=== PATIENT | male | born 1990 | race Caucasian/White ===

== ENCOUNTER 2023-04-23 02:17 | Inpatient (IN) | payer SELFPAY ==
[~2023-04-23] VITALS: Ht 165.1 cm; Wt 74.8 kg
[2023-04-23 03:57] LABS: BASOPHILS % 0.5 % (0.0-2.0); EOSINOPHILS % 0.5 % (0.0-5.0); HEMATOCRIT. 44.1 % (42.0-52.0); HEMOGLOBIN. 13.8 g/dL (14.0-18.0); LYMPHOCYTES % 10.5 % (20.0-50.0); MEAN CORPUSCULAR HEMOGLOBIN 27.3 pg (28.0-32.0); MEAN CORPUSCULAR HGB CONC 31.3 g/dL (31.0-37.0); MEAN CORPUSCULAR VOLUME 87.5 fL (80.0-94.0); MONOCYTES % 8.8 % (2.0-8.0); NEUTROPHILS % 79.7 % (40.0-76.0); PLATELET 209 x1000/uL (130-400); RED BLOOD CELL COUNT 5.04 mill/uL (4.7-6.1); RED CELL DISTRIBUTION WIDTH 14.8 % (11.6-14.6); WHITE BLOOD COUNT 8.4 x1000/uL (4.5-11.0)
[2023-04-23 04:18] LABS: ACETAMINOPHEN < 2 ug/mL (10-30); ALANINE AMINOTRANSFERASE 323 IU/L (10-49); ALBUMIN 4.5 g/dL (3.2-4.8); ASPARTATE AMINOTRANSFERASE 1160 IU/L (<34); BILIRUBIN TOTAL 0.3 mg/dL (0.1-1.0); CALCIUM 8.9 mg/dL (8.7-10.4); CARBON DIOXIDE 26 mEq/L (21-32); CHLORIDE 103 mEq/L (98-107); CREATININE 0.7 mg/dL (0.6-1.3); ETHANOL BLOOD 72 mg/dL (<10); GLUCOSE 113 mg/dL (70-105); POTASSIUM 3.8 mEq/L (3.5-5.1); PROTEIN TOTAL 7.8 g/dL (6.0-8.3); SODIUM 138 mEq/L (136-145); UREA NITROGEN BLOOD 9 mg/dL (9-23)
[2023-04-23 05:18] LABS: HEPATITIS A AB IGM NEGATIVE (Negative); HEPATITIS B CORE AB IGM NEGATIVE (Negative); HEPATITIS B SURFACE ANTIGEN NEGATIVE (Negative); HEPATITIS C AB NON REACTIVE (Neg) (Negative)
[2023-04-23] MEDS ORDERED: NALO4SPR BOTHNSTRLS (05:31)
[2023-04-23 08:00] VITALS: BP 145/89; PULSE 67; RESP 16; TEMP 97
[2023-04-23] MEDS: SODIUM CHLORIDE 0.9% 1,000 ML IV SCH (10:00)
[2023-04-23 11:54] VITALS: BP 145/89; PULSE 67; RESP 16; TEMP 97
[2023-04-23 12:00] VITALS: BP 141/94; PULSE 72; RESP 16; TEMP 96.2
[2023-04-23] MEDS ORDERED: ACETAMINOPHEN 325MG TABLET PO PRN (12:15)
[2023-04-23] MEDS ORDERED: ONDANSETRON HCL 4MG/2ML INJ IV PRN (14:15)
[2023-04-23 16:00] VITALS: BP 142/105; PULSE 83; RESP 18; TEMP 96.5
[2023-04-23] MEDS ORDERED: THIAMINE HCL 100MG TABLET PO NR (17:45)
[2023-04-23] MEDS: METOCLOPRAMIDE HCL 10MG/2ML VIAL IV SCH ×2 (18:05→23:15)
[2023-04-23 20:00] VITALS: BP 126/87; PULSE 73; RESP 19; TEMP 97.4
[2023-04-23] MEDS: SUCRALFATE 1G TABLET PO SCH (20:11)
[2023-04-23] MEDS: CHLORDIAZEPOXIDE 25MG CAPSULE PO SCH (21:15)
[2023-04-23] MEDS: GABAPENTIN 100MG CAPSULE PO SCH (21:16)
[2023-04-24] VITALS (7 sets, daily range): BP systolic 106–181; BP diastolic 60–99; PULSE 73–120; RESP 18–20; TEMP 97.7–99.3
[2023-04-24] MEDS: CHLORDIAZEPOXIDE 25MG CAPSULE PO SCH ×3 (05:19→21:11)
[2023-04-24] MEDS: METOCLOPRAMIDE HCL 10MG/2ML VIAL IV SCH ×3 (05:19→16:38)
[2023-04-24] MEDS: SODIUM CHLORIDE 0.9% 1,000 ML IV SCH ×2 (05:20→16:38)
[2023-04-24] MEDS: GABAPENTIN 100MG CAPSULE PO SCH ×3 (05:20→21:11)
[2023-04-24] MEDS: SUCRALFATE 1G TABLET PO SCH ×4 (06:26→21:11)
[2023-04-24] MEDS: MULTIVITAMINS,THER W-MINERALS TABLET PO SCH (08:22)
[2023-04-24] MEDS: AMLODIPINE 5MG TABLET PO SCH (08:22)
[2023-04-25] VITALS: BP 134/72; PULSE 94; RESP 20; TEMP 100.3
[2023-04-25] MEDS: SODIUM CHLORIDE 0.9% 1,000 ML IV SCH ×2 (01:25→16:15)
[2023-04-25] MEDS: METOCLOPRAMIDE HCL 10MG/2ML VIAL IV SCH ×4 (01:30→18:03)
[2023-04-25 04:00] VITALS: BP 167/94; PULSE 105; RESP 20; TEMP 98.8
[2023-04-25] MEDS: LACTULOSE 20G/30ML UDC PO SCH ×3 (05:58→21:05)
[2023-04-25] MEDS: CHLORDIAZEPOXIDE 25MG CAPSULE PO SCH ×2 (05:59→14:09)
[2023-04-25] MEDS: GABAPENTIN 100MG CAPSULE PO SCH ×3 (05:59→21:04)
[2023-04-25] MEDS: SUCRALFATE 1G TABLET PO SCH ×4 (06:01→21:05)
[2023-04-25 06:18] LABS: AMMONIA 38 uMol/L (<32)
[2023-04-25 06:19] LABS: ALANINE AMINOTRANSFERASE 119 IU/L (10-49); ASPARTATE AMINOTRANSFERASE 87 IU/L (<34); BILIRUBIN DIRECT 0.4 mg/dL (<=3.0); CALCIUM 9.1 mg/dL (8.7-10.4); CARBON DIOXIDE 29 mEq/L (21-32); CHLORIDE 100 mEq/L (98-107); CREATININE 0.6 mg/dL (0.6-1.3); GLUCOSE 89 mg/dL (70-105); POTASSIUM 3.4 mEq/L (3.5-5.1); PROTEIN TOTAL 6.6 g/dL (6.0-8.3); SODIUM 136 mEq/L (136-145); UREA NITROGEN BLOOD 6 mg/dL (9-23)
[2023-04-25 06:27] LABS: BASOPHILS % 0.3 % (0.0-2.0); HEMATOCRIT. 44.2 % (42.0-52.0); HEMOGLOBIN. 14.7 g/dL (14.0-18.0); LYMPHOCYTES % 18.9 % (20.0-50.0); MEAN CORPUSCULAR HEMOGLOBIN 28.1 pg (28.0-32.0); MEAN CORPUSCULAR HGB CONC 33.2 g/dL (31.0-37.0); MEAN CORPUSCULAR VOLUME 84.7 fL (80.0-94.0); MEAN PLATELET VOLUME 8.5 fl (7.4-10.4); MONOCYTES % 11.1 % (2.0-8.0); NEUTROPHILS % 68.7 % (40.0-76.0); PLATELET 198 x1000/uL (130-400); RED BLOOD CELL COUNT 5.22 mill/uL (4.7-6.1); RED CELL DISTRIBUTION WIDTH 14.3 % (11.6-14.6); WHITE BLOOD COUNT 6.8 x1000/uL (4.5-11.0)
[2023-04-25 06:34] LABS: PROTHROMBIN TIME 10.9 sec (9.6-11.0)
[2023-04-25 08:00] VITALS: BP 110/76; PULSE 79; RESP 20; TEMP 98
[2023-04-25] MEDS: MULTIVITAMINS,THER W-MINERALS TABLET PO SCH (10:03)
[2023-04-25] MEDS: AMLODIPINE 5MG TABLET PO SCH (10:03)
[2023-04-25] MEDS ORDERED: POTASSIUM CHLORIDE 20MEQ/PACKET PO NR (11:45)
[2023-04-25] MEDS ORDERED: LACT10SO7 PO (11:59)
[2023-04-25] MEDS ORDERED: SUCR1TAB30 PO (11:59)
[2023-04-25] MEDS ORDERED: GABA-529 PO (11:59)
[2023-04-25] MEDS ORDERED: THIA100T72 MT (11:59)
[2023-04-25] MEDS ORDERED: L25 PO (11:59)
[2023-04-25 16:00] VITALS: BP 147/97; PULSE 79; RESP 20; TEMP 99
[2023-04-25 20:00] VITALS: BP 123/83; PULSE 69; RESP 17; TEMP 97.8
[2023-04-26] VITALS: BP 121/83; PULSE 83; RESP 17; TEMP 97.5
[2023-04-26] MEDS: METOCLOPRAMIDE HCL 10MG/2ML VIAL IV SCH ×3 (00:10→11:18)
[2023-04-26] MEDS: SODIUM CHLORIDE 0.9% 1,000 ML IV SCH ×3 (03:44→05:54)
[2023-04-26 04:00] VITALS: BP 124/78; RESP 17; TEMP 97.6
[2023-04-26] MEDS: LACTULOSE 20G/30ML UDC PO SCH ×2 (05:54→13:29)
[2023-04-26] MEDS: SUCRALFATE 1G TABLET PO SCH ×2 (05:54→11:18)
[2023-04-26] MEDS: GABAPENTIN 100MG CAPSULE PO SCH ×2 (05:54→13:29)
[2023-04-26 07:25] LABS: BASOPHILS % 0.4 % (0.0-2.0); EOSINOPHILS % 2.1 % (0.0-5.0); HEMATOCRIT. 41.4 % (42.0-52.0); HEMOGLOBIN. 13.9 g/dL (14.0-18.0); LYMPHOCYTES % 17.9 % (20.0-50.0); MEAN CORPUSCULAR HEMOGLOBIN 28.5 pg (28.0-32.0); MEAN CORPUSCULAR HGB CONC 33.5 g/dL (31.0-37.0); MEAN CORPUSCULAR VOLUME 84.9 fL (80.0-94.0); MEAN PLATELET VOLUME 8.4 fl (7.4-10.4); MONOCYTES % 12.7 % (2.0-8.0); NEUTROPHILS % 66.9 % (40.0-76.0); PLATELET 198 x1000/uL (130-400); RED BLOOD CELL COUNT 4.88 mill/uL (4.7-6.1); WHITE BLOOD COUNT 5.9 x1000/uL (4.5-11.0)
[2023-04-26 08:25] VITALS: BP 116/77; PULSE 82; RESP 18; TEMP 98.6
[2023-04-26 08:27] LABS: CALCIUM 9.1 mg/dL (8.7-10.4); CARBON DIOXIDE 32 mEq/L (21-32); CHLORIDE 102 mEq/L (98-107); CREATININE 0.6 mg/dL (0.6-1.3); GLUCOSE 99 mg/dL (70-105); POTASSIUM 3.5 mEq/L (3.5-5.1); SODIUM 138 mEq/L (136-145); UREA NITROGEN BLOOD 6 mg/dL (9-23)
[2023-04-26] MEDS: MULTIVITAMINS,THER W-MINERALS TABLET PO SCH (08:27)
[2023-04-26] MEDS: AMLODIPINE 5MG TABLET PO SCH (08:27)
[2023-04-26 12:00] VITALS: BP 118/77; PULSE 91; RESP 18; TEMP 98.1
[2023-04-26 16:00] VITALS: BP 134/72; PULSE 83; RESP 18; TEMP 97.1
[2023-04-26 16:25] VITALS: BP 127/93; PULSE 83; TEMP 97.1; O2SAT 100
== END 2023-04-26 17:36 | disposition home or self-care (01) | DRG 812 ==
LOC: ER 02:59 → 8WST 05:52
PROVIDERS: ADMIT Internal Medicine; ATTEND Internal Medicine
DX: T50.991A Poisoning by other drugs, medicaments and biological substances, accidental (unintentional), initial encounter (principal); J96.01 Acute respiratory failure with hypoxia; G92.9 Unspecified toxic encephalopathy; F10.129 Alcohol abuse with intoxication, unspecified; K31.9 Disease of stomach and duodenum, unspecified; R16.0 Hepatomegaly, not elsewhere classified; E87.6 Hypokalemia; R74.01 Elevation of levels of liver transaminase levels; I10 Essential (primary) hypertension; F17.210 Nicotine dependence, cigarettes, uncomplicated; Y90.3 Blood alcohol level of 60-79 mg/100 ml; Y92.89 Other specified places as the place of occurrence of the external cause
CPT/HCPCS: 36415; 76700; 80048; 80053; 80076; 80307; 80320; 80329; 82140; 82962; 85025; 86705; 86709; 87340; 99285; J2405; J2765; J7030; G0480